=== PATIENT | male | born 1980 | race Caucasian/White ===

== ENCOUNTER 2018-06-06 04:13 | Emergency (ER) | payer OTHER ==
--- NOTE | 2018-06-06 04:31 | ED ---
Lower Extremity - HPI Summary HPI Summary: This patient is a 37 year old M brought in by ambulance to [facility] with a chief complaint of pain in bilateral balls of his feet since 2 days ago. EMS report that the patient has been walking a lot the last few days and recently arrived to [facility] from [facility]. The patient rates the pain 2/10 in severity. Symptoms aggravated by standing and ambulating. Symptoms alleviated by nothing. Patient is homeless and is trying to get to his in [place]. - History of Current Complaint Chief Complaint: EDExtremityLower Stated Complaint: FOOT PAIN Time Seen by Provider: 06/06/18 04:17 Hx Obtained From: Patient, EMS Onset of Pain: Hours Onset/Duration: Still Present Severity Initially: Mild Severity Currently: Mild Pain Intensity: 2 Pain Scale Used: 0-10 Numeric Timing: Constant Location: Is Discrete @ - bilateral balls of feet Associated Signs And Symptoms: Positive: Other - blisters Aggravating Factor(s): Standing, Ambulation Alleviating Factor(s): Nothing Able to Bear Weight: Yes - Allergies/Home Medications Allergies/Adverse Reactions: Allergies Allergy/AdvReac Type Severity Reaction Status Date / Time No Known Allergies Allergy Verified 06/06/18 20:11 Home Medications: Home Medications NK [No Home Medications Reported] 06/06/18 [History Confirmed 06/06/18] PMH/Surg Hx/FS Hx/Imm Hx Endocrine/Hematology History: Denies: Hx Diabetes Opthamlomology History: Denies: Hx Legally Blind EENT History: Denies: Hx Deafness - Surgical History Surgery Procedure, Year, and Place: none reported Infectious Disease History: No Infectious Disease History: Denies: Traveled Outside the [place] in Last 30 Days - Family History Known Family History: Negative: Diabetes - Social History Occupation: Unemployed Review of Systems Negative: Fever Negative: Epistaxis Negative: Cough Negative: Vomiting Skin: Other - blisters on bilateral balls of feet All Other Systems Reviewed And Are Negative: Yes Physical Exam - Summary Physical Exam Summary: VITAL SIGNS: Reviewed. GENERAL: Patient is a well-developed and nourished MALE who is lying comfortable in the stretcher. Patient is not in any acute respiratory distress. HEAD AND FACE: No signs of trauma. No ecchymosis, hematomas or skull depressions. No sinus tenderness. EYES: PERRLA, EOMI x 2, No injected conjunctiva, no nystagmus. EARS: Hearing grossly intact. Ear canals and tympanic membranes are within normal limits. MOUTH: Oropharynx within normal limits. NECK: Supple, trachea is midline, no adenopathy, no JVD, no carotid bruit, no c- spine tenderness, neck with full ROM. CHEST: Symmetric, no tenderness at palpation LUNGS: Clear to auscultation bilaterally. No wheezing or crackles. CVS: Regular rate and rhythm, S1 and S2 present, no murmurs or gallops appreciated. ABDOMEN: Soft, non-tender. No signs of distention. No rebound no guarding, and no masses palpated. Bowel sounds are normal. EXTREMITIES: FROM in all major joints, no edema, no cyanosis or clubbing. NEURO: Alert and oriented x 3. No acute neurological deficits. Speech is normal and follows commands. SKIN: Dry and warm, blisters on the bottoms of both feet Triage Information Reviewed: Yes Vital Signs On Initial Exam: Initial Vitals Temp Pulse Resp BP Pulse Ox 98.2 F 76 16 123/82 97 06/06/18 04:17 06/06/18 04:17 06/06/18 04:17 06/06/18 04:17 06/06/18 04:17 Vital Signs Reviewed: Yes Diagnostics - Vital Signs Vital Signs Temp Pulse Resp BP Pulse Ox 06/06/18 04:17 98.2 F 76 16 123/82 97 - Laboratory Lab Statement: Any lab studies that have been ordered have been reviewed, and results considered in the medical decision making process. Lower Extremity Course/Dx - Course Course Of Treatment: This patient is a 37 year old M brought in by ambulance to [facility] with a chief complaint of pain in bilateral balls of his feet since 2 days ago. EMS report that the patient has been walking a lot the last few days. The patient rates the pain 2/10 in severity. Symptoms aggravated by standing and ambulating. Symptoms alleviated by nothing. Patient will be discharged with follow up from PCP. The patient is agreeable with this plan. - Diagnoses Provider Diagnoses: Pain in both feet Discharge - Sign-Out/Discharge Documenting (check all that apply): Patient Departure - discharge - Discharge Plan Condition: Stable Disposition: HOME Patient Education Materials: Blister (ED) Referrals: [facility] [Outside] Additional Instructions: Follow up with primary care physician in 1-2 days. Return to the emergency department with any new or worsening symptoms. - Billing Disposition and Condition Condition: STABLE Disposition: Home - Attestation Statements Document Initiated by Eliu: Yes Documenting Scribe: Daria Spencer Provider For Whom Eliu is Documenting (Include Credential): Flaco Watson MD Scribe Attestation: Daria Benjamin, scribed for Flaco Watson MD on 06/07/18 at 0608. Scribe Documentation Reviewed: Yes Provider Attestation: The documentation as recorded by the ericibjoelle, Daria Spencer accurately reflects the service I personally performed and the decisions made by Francisco joiner MD Status of Scribe Document: Viewed
[2018-06-06] MEDS ORDERED: ALPRAZolam TAB* 0.5 MG PO ONE (04:50)
[2018-06-06] MEDS ORDERED: Acetaminophen TAB* 325 MG PO ONE (04:50)
[2018-06-06 06:09] VITALS: BP 119/74
== END 2018-06-06 06:10 | disposition home or self-care (01) ==
LOC: ED 04:13
DX: M79.672 Pain in left foot (principal); M79.671 Pain in right foot; S90.822A Blister (nonthermal), left foot, initial encounter; S90.821A Blister (nonthermal), right foot, initial encounter; X58.XXXA Exposure to other specified factors, initial encounter; Y92.9 Unspecified place or not applicable
CPT/HCPCS: 99282; A9270-GY

== ENCOUNTER 2018-06-06 19:30 | Emergency (ER) | payer OTHER ==
[2018-06-06 20:26] LABS: Urine Appearance Clear; Urine Bacteria Absent (Absent); Urine Bilirubin Negative (Negative); Urine Blood 1+ (Negative); Urine Color Yellow; Urine Glucose Negative (Negative); Urine Ketones Negative (Negative); Urine Nitrite Negative (Negative); Urine Protein Negative (Negative); Urine Red Blood Cell 3+(>10/hpf) (Absent); Urine Specific Gravity 1.026 (1.010-1.030); Urine Urobilinogen Positive (Negative); Urine White Blood Cell Trace(0-5/hpf) (Absent)
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
[2018-06-06 20:42] LABS: Barbiturates Urine Screen None Detected (None Detect); Benzodiazepine Urine Screen Presumptive Positive (None Detect); Urine Cannabinoids Screen Presumptive Positive (None Detect)
[2018-06-06 20:56] LABS: ABS Basophils 0.1 10^3/ul (0-0.2); ABS Eosinophils 0.1 10^3/ul (0-0.6); ABS Lymphocytes 1.4 10^3/ul (1.0-4.8); ABS Monocytes 0.7 10^3/ul (0-0.8); ABS Neutrophils 5.9 10^3/ul (1.5-7.7); ABS Nucleated RBC 0 10^3/ul; Eosinophil % 1.5 %; Hematocrit 41 % (42-52); Hemoglobin 13.8 g/dl (14.0-18.0); Lymphocyte % 17.6 %; Mean Corpuscular HGB Conc 34 g/dl (31-36); Mean Corpuscular Hemoglobin 31 pg (27-31); Mean Corpuscular Volume 92 fL (80-94); Mean Platelet Volume 8.3 fL (7.4-10.4); Nucleated Red Blood Cells % 0.1; Platelet Count 139 10^3/ul (150-450); Red Blood Count 4.48 10^6/ul (4.00-5.40); Red Cell Distribution Width 13 % (10.5-15); White Blood Count 8.2 10^3/ul (3.5-10.8)
[2018-06-06 21:08] LABS: ALT 23 U/L (7-52); AST 20 U/L (13-39); Albumin 4.3 g/dL (3.2-5.2); Albumin/Globulin Ratio 1.6 (1-3); Alkaline Phosphatase 95 U/L (34-104); BUN/Creatinine Ratio 14.9 (8-20); Blood Urea Nitrogen 13 mg/dL (6-24); CO2 Carbon Dioxide 24 mmol/L (22-32); Calcium 9.1 mg/dL (8.6-10.3); EGFR Non-African American 97.7 (>60); Globulin 2.7 g/dL (2-4); Glucose 105 mg/dL (70-100); Potassium 3.6 mmol/L (3.5-5.0); Sodium 140 mmol/L (135-145)
[2018-06-06 21:12] LABS: Anion Gap 4 mmol/L (2-11); Chloride 112 mmol/L (101-111)
[2018-06-06 21:26] LABS: Acetaminophen < 15 mcg/mL; Alcohol < 10 mg/dL (<10); Salicylate < 2.50 mg/dL (<30)
[2018-06-06 21:41] LABS: TSH (Thyroid Stimulating Horm) 0.48 mcIU/mL (0.34-5.60)
[2018-06-07] MEDS ORDERED: Acetaminophen TAB* 325 MG PO ONE (03:05)
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
[2018-06-07] MEDS ORDERED: Ibuprofen TAB* 600 MG PO ONE (11:37)
[2018-06-07 12:43] VITALS: BP 123/79
--- NOTE | 2018-06-07 17:21 | ED ---
Progress - Progress Note Progress Note: Sign-out from Dr. Watson at 0700. E discharged the patient with a diagnosis with unspecified mood disorder per Dr. Lombardi. - Consult/PCP Time Called: 23:00 Course/Dx - Course Course Of Treatment: Sign-out from Dr. Watson at 0700 awaiting MHE disposition. E discharged the patient with a diagnosis with unspecified mood disorder per Dr. Lombardi. - Diagnoses Provider Diagnoses: Mood disorder Discharge - Sign-Out/Discharge Documenting (check all that apply): Patient Departure - Discharge per E Receiving patient FROM: Flaco Watson - 07 - Discharge Plan Condition: Stable Disposition: HOME Patient Education Materials: Crutch Instructions (ED), Blister (ED) Referrals: [facility] [Outside] Additional Instructions: You may soak your feet 1-2 x day in warm salt water bath to reduce pain/ swelling - rinse well and pat dry then reapply KANDY wrap as needed for pain/ swelling. Use crutches to avoid weight bearing. You may also rest, ice and elevate. You may also take ibuprofen alternating with acetaminophen as needed for pain. Follow-up with PCP for recheck if worsening. For dark urine, drink plenty of water to aid in flushing your system of muscle breakdown from excessive exercise yesterday. Avoid alcohol, high protein foods, diuretics, etc to prevent worsening issue. Follow-up with PCP if symptoms persist. Jenae Suarez is a local PCP if you decide to stay in the area. If not, you may see your PCP at home. - Billing Disposition and Condition Condition: STABLE Disposition: Home - Attestation Statements Document Initiated by Eliu: Yes Documenting Scribe: Samuel Mello Provider For Whom Eliu is Documenting (Include Credential): Ender Teixeira MD Scribe Attestation: Sourav, Samuel Mello, scribed for Ender Teixeira MD on 06/07/18 at 1723. Scribe Documentation Reviewed: Yes Provider Attestation: The documentation as recorded by the Samuel rico accurately reflects the service I personally performed and the decisions made by me, Elvis Teixeira MD Status of Scribe Document: Viewed
== END 2018-06-07 13:23 | disposition home or self-care (01) ==
LOC: ED 19:30
DX: F39 Unspecified mood [affective] disorder (principal); R45.851 Suicidal ideations; F17.210 Nicotine dependence, cigarettes, uncomplicated; F32.9 Major depressive disorder, single episode, unspecified
CPT/HCPCS: 36415; 80053; 80307; 80320; 80329; 81003; 81015; 84443; 85025; 87086; 99285; A9270-GY; G0480